=== PATIENT | female | born 1995 | race Caucasian/White ===

== ENCOUNTER 2017-11-08 03:35 | Emergency (ER) | payer OTHER ==
[~2017-11-08] VITALS: Ht 152.4 cm; Wt 82.0 kg
[2017-11-08] MEDS: ACETAMINOPHEN 500MG TABLET PO SCH ×2 (03:06→04:56)
[~2017-11-08 03:35] MED LIST: CITRIC ACID/SODIUM CITRATE SOLN 30ML UDC PO SCH; PNV1TABL76 MT
[2017-11-08] MEDS ORDERED: METOCLOPRAMIDE HCL 10MG/2ML VIAL IV STA (04:37)
[2017-11-08] MEDS ORDERED: FAMOTIDINE 20MG/2ML VIAL IV STA (04:37)
[2017-11-08] MEDS ORDERED: VISCOUS LIDOCAINE 2% 15 ML UDC PO STA (04:37)
[2017-11-08] MEDS ORDERED: MAGNESIUM/ALUMINUM HYDROXIDE/SIMETHICONE 30ML UDC PO STA (04:37)
[2017-11-08 05:04] LABS: BASOPHILS % 0.2 % (0.0-2.0); EOSINOPHILS % 0.2 % (0.0-5.0); HEMATOCRIT. 31.9 % (36.0-48.0); HEMOGLOBIN. 10.7 g/dL (12.0-16.0); LYMPHOCYTES % 10.6 % (20.0-50.0); MEAN CORPUSCULAR HEMOGLOBIN 29.1 pg (28.0-32.0); MEAN CORPUSCULAR VOLUME 86.8 fL (81.0-99.0); MEAN PLATELET VOLUME 8.6 fl (7.4-10.4); MONOCYTES % 5.8 % (2.0-8.0); NEUTROPHILS % 83.2 % (40.0-76.0); PLATELET 211 x1000/uL (130-400); RED BLOOD CELL COUNT 3.67 mill/uL (4.2-5.4); RED CELL DISTRIBUTION WIDTH 13.4 % (11.6-14.6)
[2017-11-08 05:08] LABS: CHLORIDE 106 mEq/L (98-107); PROTHROMBIN TIME 10.4 sec (9.4-11.6)
[2017-11-08 05:40] VITALS: BP 119/75
== END 2017-11-08 05:41 | disposition home or self-care (01) ==
LOC: EDSTATUS 03:35 → ER 03:35
DX: O21.0 Mild hyperemesis gravidarum (principal); O99.012 Anemia complicating pregnancy, second trimester; D64.89 Other specified anemias; O26.892 Other specified pregnancy related conditions, second trimester; R10.13 Epigastric pain; D72.829 Elevated white blood cell count, unspecified; Z3A.24 24 weeks gestation of pregnancy
CPT/HCPCS: 36415; 80053; 83690; 85025; 85610; 96374; 96375; 99284; J2765; J3490; Z7610

== ENCOUNTER 2021-02-11 12:21 | Emergency (ER) | payer OTHER ==
[~2021-02-11] VITALS: Ht 157.5 cm; Wt 66.0 kg
[~2021-02-11 12:21] MED LIST changes: -CITRIC ACID/SODIUM CITRATE SOLN 30ML UDC PO SCH
[2021-02-11 12:22] VITALS: BP 106/57
== END 2021-02-11 12:22 | disposition left against medical advice (07) ==
LOC: ER 12:21
DX: M25.562 Pain in left knee (principal); Z53.21 Procedure and treatment not carried out due to patient leaving prior to being seen by health care provider